=== PATIENT | female | born 1940 | race Caucasian/White ===

== ENCOUNTER → 2017-04-27 | Outpatient (CLI) | payer MEDICARE ==
--- NOTE | 2017-04-28 14:19 | MM ---
Reason for exam: screening (asymptomatic). Last mammogram was performed 1 year ago. History: Patient is postmenopausal. Took estrogen for 5 years beginning at age 57. Physical Findings: A clinical breast exam by your physician is recommended on an annual basis and results should be correlated with mammographic findings. MG 3D Screening Mammo W/Cad Bilateral CC and MLO view(s) were taken. Prior study comparison: April 17, 2016, bilateral MG 3d screening mammo w/cad. December 26, 2014, bilateral MG screening mammo w CAD. There are scattered fibroglandular densities. Finding: There are typically benign calcifications in both breasts. There is a chronic nodularity in the right breast. No significant changes in finding since April 17, 2016 and December 26, 2014. ASSESSMENT: Benign, BI-RAD 2 RECOMMENDATION: Routine screening mammogram of both breasts in 1 year.
== END | disposition home or self-care (01) ==
LOC: RADMAMWWP 07:20
PROVIDERS: ATTEND Family Medicine
DX: Z12.31 Encounter for screening mammogram for malignant neoplasm of breast (principal)
CPT/HCPCS: 77063; G0202

== ENCOUNTER → 2019-12-13 | Outpatient (CLI) | payer MEDICARE ==
[2019-12-13 16:16] LABS: Chol/HDL Ratio 3.11; LDL Cholesterol,Calculated 90.4 mg/dL (0.0-131.0); VLDL Calculation 40.6 mg/dL (5.00-40.00)
== END | disposition home or self-care (01) ==
LOC: LABWHC1 08:24
PROVIDERS: ATTEND Internal Medicine Interventional Cardiology
DX: E78.2 Mixed hyperlipidemia (principal)
CPT/HCPCS: 36415; 80061; 84450; 84460

== ENCOUNTER → 2020-12-28 | Outpatient (CLI) | payer MEDICARE ==
--- NOTE | 2020-12-28 19:14 | XR ---
EXAM TYPE: LUMBAR SPINE X RAY SERIES COMPARISON: NONE HISTORY: Low back pain TECHNIQUE: 4 views are submitted. FINDINGS: Alignment is anatomic. The pedicles are intact. The transverse processes are intact. There is grad e 1 anterolisthesis L4 on L5.. A grade 1 anterolisthesis L5 on S1.. Surgical clips right upper quadr ant. Degenerative changes of the spine. Facet arthropathy greater vascular calcification. IMPRESSION: 1. Diffuse osteopenia with multilevel degenerative change and facet arthropathy. Multilevel anterolis thesis consider MRI..
== END | disposition home or self-care (01) ==
LOC: RADXRMAIN 11:49
PROVIDERS: ATTEND Family Medicine
DX: M85.88 Other specified disorders of bone density and structure, other site (principal); M47.816 Spondylosis without myelopathy or radiculopathy, lumbar region; M43.16 Spondylolisthesis, lumbar region; M51.36 Other intervertebral disc degeneration, lumbar region
CPT/HCPCS: 72110

== ENCOUNTER → 2021-01-16 | Outpatient (CLI) | payer MEDICARE ==
--- NOTE | 2021-01-17 05:00 | MR ---
EXAMINATION TYPE: MR lumbar spine wo con DATE OF EXAM: 01/16/2021 COMPARISON: None HISTORY: Low back pain down right side for 6 months. Multiplanar multiecho imaging of the lumbar spine was performed with no contrast. Lumbar vertebra have fairly normal alignment. There is a few millimeter subluxation at L4-5. Disc spa ailin are slightly narrowed at L4-5 and L5-S1. There is no compression fracture. The lumbar nerve roots appear normal. There is no lumbar paraspinal mass. Sacroiliac joints appear intact. There is no spin al stenosis. IMPRESSION: There is a a few millimeter minimal degenerative L4-5 spondylolisthesis. No significant lumbar disc h erniation. No spinal stenosis. No fracture.
== END | disposition home or self-care (01) ==
LOC: RADMRIMAIN 16:24
PROVIDERS: ATTEND Family Medicine
DX: M43.16 Spondylolisthesis, lumbar region (principal)
CPT/HCPCS: 72148

== ENCOUNTER → 2022-03-28 | Outpatient (CLI) | payer MEDICARE ==
--- NOTE | 2022-03-28 10:57 | MR ---
EXAMINATION TYPE: MR brain wo/w con DATE OF EXAM: 03/28/2022 COMPARISON: HISTORY: Mild cognitive impairment TECHNIQUE: Multiplanar, multisequence images of the brain and brainstem is performed without and with IV contras t, utilizing 7.5 mL intravenous Gadavist . FINDINGS: Diffusion weighted images demonstrate no evidence of a recent infarct or other diffusion ab normality. There is moderate generalized degenerative change of the extensive and diffuse confluent and focal areas of abnormal signal throughout the white matter bilaterally. Changes of severe chronic sinusitis. Orbits are symmetric. Craniocervical junction maintained and the re is a partially empty sella turcica. The craniocervical junction appears within normal limits. Post contrast images demonstrate no abnorm al enhancement. Suspect hyperostosis of the frontal bone mild changes of right chronic mastoiditis. IMPRESSION: 1. Degenerative change with extensive nonspecific white matter changes bilaterally most typical exten sive remote ischemic white matter change. 2. Severe chronic sinusitis
== END | disposition home or self-care (01) ==
LOC: RADMRIMAIN 09:25
PROVIDERS: ATTEND Family Medicine
DX: G31.84 Mild cognitive impairment of uncertain or unknown etiology (principal); G93.89 Other specified disorders of brain
CPT/HCPCS: 70553; A9585